=== PATIENT | female | born 1945 | race Caucasian/White ===

== ENCOUNTER 2016-09-16 10:21 | Inpatient (IN) | payer MEDICARE, BC, MEDICAID ==
[2016-09-16] VITALS (11 sets, daily range): BP systolic 130–157; BP diastolic 57–88; Ht 160 cm; Wt 104.1 kg
[~2016-09-16] VITALS: Ht 160 cm; Wt 104.1 kg
[~2016-09-16 10:21] MED LIST: ASPIRIN325 MG PO; COZAAR100 MG PO; ELIQUIS2.5 MG PO; GLUCOPHAGE500 MG PO; HYDROCHLOROTHIA25 MG PO; HYDROCODON-ACE1 EAC7 PO; MIRALAX17 GM PO; TYLENOL #4 W/CO1 TAB PO; ZOFRAN4 MG PO
[2016-09-16 11:51] LABS: BASOPHILS 0.2 % (0.0-2.0); EOSINOPHILS 2.6 % (0-7); HEMATOCRIT 32.3 % (36.0-48.0); HEMOGLOBIN 9.8 g/dL (12-16); IMMATURE GRANULOCYTES 0.2 % (0-5); LYMPHOCYTES 29.4 % (15-50); MCH 26.6 pg (26.0-34.0); MCHC 30.3 g/dL (31.0-37.0); MCV 87.5 fL (80.0-100.0); MEAN PLATELET VOLUME 9.9 fL (7.4-10.4); MONOCYTES 4.7 % (2-11); NEUTROPHILS 62.9 % (40-80); PLATELET COUNT 216 10x3/uL (130-400); RBC 3.69 10x6/uL (4.00-5.40); RDW 14.9 % (11.5-14.5); WBC 5.7 10x3/uL (4.8-10.8)
[2016-09-16 11:56] LABS: APTT 25.6 SECONDS (22.8-39.4); INR 1.11 (0.85-1.17); PROTIME 14.2 SECONDS (11.6-15.0)
[2016-09-16 11:59] LABS: CALC OSMOLALITY 286 mosm/kg (275-300); CARBON DIOXIDE 28.7 mmol/L (21.0-32.0); CHLORIDE - SERUM 106 mmol/L (98-107); CREATININE - SERUM 0.7 mg/dL (0.6-1.3); GLUCOSE 115 mg/dL (74-106); POTASSIUM - SERUM 4.9 mmol/L (3.5-5.1); SODIUM 143 mmol/L (136-145); UREA NITROGEN 16 mg/dL (7-18); eGFR NON AFRICAN AMERICAN 87 mL/min (90-120)
[2016-09-16] MEDS ORDERED: LASIX40 MG PO (12:03)
[2016-09-16] MEDS ORDERED: NEURONTIN 300300 MG PO (12:03)
[2016-09-16] MEDS ORDERED: REQUIP1 MG PO (12:04)
--- NOTE | 2016-09-16 12:26 | NUR ---
1220-PT WITH ABNORMAL EKG, DR REYNOSO NOTIFIED AND STATED THEY WOULD TAKE A LOOK AT IT WHEN THE PT GOT TO HOLDING.
--- NOTE | 2016-09-16 16:00 | NUR ---
PATIENT RECEIVED TO FLOOR FROM PACU VIA BED. RESPIRATIONS EVEN AND UNLABORED. VITAL SIGNS STABLE. DRESSING TO LEFT SHOULDER CLEAN, DRY AND INTACT. SLING AND ICE PACK IN PLACE. ORIENTED TO ROOM. SIDE RAILS UP X2. BED IN LOW POSITION. CALL LIGHT IN REACH. YELLOW FALL RISK BAND PLACED ON PATIENT. FAMILY AT BEDSIDE.
--- NOTE | 2016-09-16 18:30 | NUR ---
PATIENT IN MID QUINTERO POSITION RESTING WITH EYES CLOSED. RESPIRATIONS EVEN AND UNLABORED. VITAL SIGNS STABLE. STATES PATIENT TOOK A FEW BITES OF DINNER. SIDE RAILS UP X2. BED IN LOW POSITION. CALL LIGHT IN REACH.
--- NOTE | 2016-09-16 19:00 | NUR ---
PATIENT SLEEPING WITH NO DISTRESS NOTED. AROUSES TO VOICE. DENIES PAIN AT THIS TIME. RR EVEN AND UNLABORED. O2 @ 2L VIA NC. CONT. PULSE OX ON. 0 S/S OF DISTRESS. IV TO RIGHT HAND PATENT WITH NO REDNESS OR SWELLING. DRESSING TO LEFT SHOULDER CDI. SLING TO LUE WITH ICE. B/A ON. AT BEDSIDE. SRX2. BED LOW. CALL LIGHT WITHIN REACH.
--- NOTE | 2016-09-16 22:00 | NUR ---
PATIENT VOIDED AND SAMPLE COLLECTED. C/O NAUSEA AFTER PATIENT ATTEMPTED TO EAT A CRACKER. ZOFRAN GIVEN. NIGHTTIME MEDS GIVEN. O2 SATS 99%. TURNED O2 DOWN TO 1L. WILL CONTINUE TO MONITOR.
[2016-09-17 00:31] LABS: APPEARANCE CLEAR (CLEAR); BILIRUBIN NEGATIVE (NEGATIVE); COLOR YELLOW (YELLOW); GLUCOSE NEGATIVE (NEGATIVE); KETONE NEGATIVE (NEGATIVE); LEUKOCYTE ESTERASE NEGATIVE (NEGATIVE); NITRITE NEGATIVE (NEGATIVE); PROTEIN NEGATIVE (NEGATIVE); SPECIFIC GRAVITY 1.015 (1.005-1.020); UROBILINOGEN NORMAL (NORMAL)
--- NOTE | 2016-09-17 03:05 | NUR ---
PATIENT VOIDED IN BEDPAN AND IT LEAKED ON PAD. PAD CHANGED. PATIENT STAES THAT PAIN IS NOW AN 8/10. PERCOCET GIVEN PER ORDER. WILL REASSESS. O2 SATS 97%. TURNED OFF 02.
--- NOTE | 2016-09-17 05:12 | NUR ---
PATIENT SLEEPING WITH NO DISTRESS NOTED. O2 95%.
--- NOTE | 2016-09-17 07:35 | NUR ---
PT ASSESSMENT COMPLETE NO ACUTE DISTRESS NOTED VOICES ALL NEDS TO STAFF ALL ADLS PER STAFF ASSIST. PT AWAKE AND ALERT ORINETED X 3 IS VERY HARD OF HEARING SPOUSE AT BEDSIDE. PIV PATENT TO RIGHT HAND NOTED SLING IMOBILIZER TO LEFT SHOULDER. HAS FENTLYL ALEX IN PLACE TO LEFT SHOULDER. DRESSING TO SURGICAL SITE IN TACT.
[2016-09-17 07:38] VITALS: BP 108/39
--- NOTE | 2016-09-17 08:36 | NUR ---
PT WITH EMESIS X 1 GREEN BILE LOOKING VOMIT. ZOFRAN 4 MG IVP GIVEN PER ORDER. CM HERE AND NOTIFIED OF CHANGE IN CONDITION
--- NOTE | 2016-09-17 08:53 | NUR ---
NAUSEA RESOLVED. PT EATING BREAKFAST.DENIES NEEDS.CALL LIGHT IN REACH
--- NOTE | 2016-09-17 10:41 | NUR ---
PT WITH EMESIS AGAIN WHEN PHYSICAL THERAPY IN ROOM NO NAUSEA WHEN NOT MOVING STATES THAT SOMETIMES PAIN MEDS MAKE HER SICK IS TO STRONG.
[2016-09-17 11:18] VITALS: BP 112/43
--- NOTE | 2016-09-17 14:40 | NUR ---
Patient Name: SNEHAL ABDI Admission Status: Elective Accout number: [id number] Admission Date: 09-16-2016 : 1945 Admission Diagnosis:4-PART FRACTURE OF SURGICAL NECK OF LEFT HUMERUS, INIT Attending: LILLY Current LOS: 1 Anticipated DC Date: 09-18-2016 Planned Disposition: Home or Self Care Primary Insurance: MEDICARE A & B Discharge Planning Comments: CM MET WITH PATIENT REGARDING D/C NEEDS AND PLANS. PATIENT STATED SHE LIVES WITH HER SPOUSE (JORGE) AND HE WILL DRIVE HER HOME AT DISCHARGE. PATIENT STATED THEY HAVE 2 STEPS W/RAILS TO ENTER HOME AND NO STAIRS INSIDE. PATIENT STATED SHE IS INDEPENDENT WITH HER CARE AND HAS A WALKER (USES AT TIMES), SHOWER CHAIR, AND BS COMMODE IF NEEDED AT HOME. PATIENTS PCP IS DR. CAMACHO AND PHARMACY IS [facility] IN [place]. PATIENT REFUSED HOME HEALTH WANTS TO GO HOME. CM WILL CONTINUE TO FOLLOW PATIENT WITH D/C NEEDS AND PLANS. PCP DR. CAMACHO [facility]Y [facility] [phone] JORGE (SPOUSE) [phone] [place] Tender: Eileen Pruitt Is the patient Alert and Oriented? Yes 0 * How many steps to enter\exit or inside your home? 2 W/RAILS 0 * PCP DR. CAMACHO 0 * Pharmacy [facility] IN [place] 0 * Preadmission Environment Home with Family 0 * ADLs Independent 0 * Equipment Bedside Commode Shower Chair Walker 0 * List name and contact numbers for known caregivers / representatives who currently or will assist patient after discharge: JORGE KIM (SPOUSE) [phone] 0 * Community resources currently utilized None 0 * Additional services required to return to the preadmission environment? Yes 0 * Can the patient safely return to the preadmission environment? Yes 0 * Has this patient been hospitalized within the prior 30 days at any hospital? No 0 Grand Total: 0
[2016-09-17 15:08] VITALS: BP 113/44
--- NOTE | 2016-09-17 15:30 | NUR ---
PT UP AMBULATING WITH PHYSICAL THERAPY NO ACUTE DISTRESS NOTED VOICES ALL NEEDS TO STAFF. EMESIS NOTED WITH MOVEMENT INITIALLY.
--- NOTE | 2016-09-17 16:00 | NUR ---
DR REYNOSO HERE DECREASED FENTNYL TO 6 MCG/HR WILL REASSESS EFFECTIVENESS
--- NOTE | 2016-09-17 17:39 | NUR ---
PT COMPLAINS OF PAIN EARLIER GIVEN PERCOCET PER ORDER WILL MONITOR EFFECTIVENESS. NOTED LESS NAUSEA WITH DECREASED DOSE OF FENTANYL
--- NOTE | 2016-09-17 18:38 | NUR ---
PT VOMITING GREEN BILE ZOFRAN 4 MG IVP PER ORDER WILL MONITOR EFFECTIVENESS
[2016-09-17 19:00] VITALS: BP 99/48
--- NOTE | 2016-09-17 19:00 | NUR ---
PATIENT SLEEPING SUPINE IN BED. HOB 30 DEGREES. RR EVEN AND UNLABORED. 0 S/S OF DISTRESS. IV TO RIGHT HAND PATENT WITH NO REDNESS OR SWELLING. DRESSING TO LEFT SHOULDER CDI. SLING TO LUE. PUT SCD'S ON PATIENT. B/A ON. AT BEDSIDE. SRX2. BED LOW. CALL LIGHT WITHIN REACH.
--- NOTE | 2016-09-17 20:30 | NUR ---
ASSESSMENT COMPLETE. NIGHTTIME MEDS GIVEN. INSTRUCTED PATIENT TO USE IS AND COUGH. DENIES PAIN AT THIS TIME.
[2016-09-18] VITALS: BP 108/54
--- NOTE | 2016-09-18 03:49 | NUR ---
PATIENT SLEEPING WITH NO DISTRESS NOTED. AT BEDSIDE. CALL LIGHT WITHIN REACH.
[2016-09-18 04:00] VITALS: BP 101/47
--- NOTE | 2016-09-18 07:00 | NUR ---
REPORT RECIEVED ASSUMED CARE. PATIENT IN BED WITH IV INTACT. NO COMPLAINTS AT THIS TIME. CALL LENAW VICTORIA SPENCER.
[2016-09-18 08:21] VITALS: BP 113/98
[2016-09-18 08:48] LABS: HEMATOCRIT 26.9 % (36.0-48.0); HEMOGLOBIN 8.4 g/dL (12-16); MCH 27.2 pg (26.0-34.0); MCHC 31.2 g/dL (31.0-37.0); MCV 87.1 fL (80.0-100.0); RBC 3.09 10x6/uL (4.00-5.40); RDW 15.4 % (11.5-14.5)
[2016-09-18 09:06] LABS: ANION GAP 12.7 mmol/L (8-16); CALCIUM 8.1 mg/dL (8.5-10.1); CARBON DIOXIDE 23.7 mmol/L (21.0-32.0); CREATININE - SERUM 0.8 mg/dL (0.6-1.3); POTASSIUM - SERUM 4.4 mmol/L (3.5-5.1)
[2016-09-18] MEDS ORDERED: PERCOCET 10/3251 TA1 PO (09:22)
[2016-09-18] MEDS ORDERED: ZOFRAN4 MG PO (09:25)
[2016-09-18 11:51] VITALS: BP 124/54
--- NOTE | 2016-09-18 13:30 | NUR ---
PATIENT BLOCK REMOVED BY DR. REYNOSO. PATIENT HAS NO PAIN AT THIS TIME. FAMILY AT BEDSIDE. CALL LIGHT WITHIN REACH.
--- NOTE | 2016-09-18 15:45 | NUR ---
NOTIFIED CM THAT PATIENT O2 SATS ARE DOWN IN THE 80'S WITHOUT O2. NEW ORDERS RECIEVED AND CARRIED OUT. CALL LIGHT WITHIN REACH.
[2016-09-18 17:27] VITALS: BP 109/50
--- NOTE | 2016-09-18 18:26 | NUR ---
PATIENT IN BED WITH NO COMPLAINTS AT THIS TIME. IV REMOVED WITH CATH TIP INTACT. SLING ON LUE. FAMILY AT BEDSIDE. CALL LIGHT WITHIN REACH. O2 ON AT 2 L NC.
--- NOTE | 2016-09-18 19:00 | NUR ---
PATIENT SUPINE IN BED. HOB 30 DEGREES. AAOX4. RR EVEN AND UNLABORED. O2 @ 2L. SATS 99%. TURNED DOWN TO 1L. WILL MONITOR. 0 S/S OF DISTRESS. DENIES PAIN AT THIS TIME. IV TO RIGHT HAND S/L WITH NO REDNESS OR SWELLING. DRESSING TO LEFT SHOULDER CDI. SLING TO LUE. SCD'S IN ROOM BUT OFF. B/A ON. AT BEDSIDE. SRX2. BED LOW. CALL LIGHT WITHIN REACH.
[2016-09-18 20:00] VITALS: BP 123/45
[2016-09-19] VITALS: BP 124/52
--- NOTE | 2016-09-19 | NUR ---
PATIENT HAD INCONTINENT EPISODE OF BOWEL. ASSISTED TO BATHROOM. LINENS AND GOWN CHANGED. NOW BACK IN BED WITH NO OTHER NEEDS.
[2016-09-19 04:00] VITALS: BP 137/65
--- NOTE | 2016-09-19 07:00 | NUR ---
REPORT RECIEVED ASSUMED CARE. PATIENT IN BED WITH IV INTACT. NO COMPLAINTS. CALL LIGHT WITHIN REACH.
--- NOTE | 2016-09-19 08:45 | NUR ---
PATIENT UP AMBULATING AT THIS TIME. NO SOB OR PROBLEMS.
[2016-09-19 09:44] VITALS: BP 113/42
--- NOTE | 2016-09-19 10:32 | NUR ---
CM REASSESSMENT NOTE: PATIENT IS DISCHARGING HOME TODAY- IS DRIVING HER. PATIENT REF. HOME HEALTH OR ANY OTHER NEEDS.
--- NOTE | 2016-09-19 13:00 | NUR ---
PATIENT RECIEVED DC INSTRUCTIONS. VERBALIZED UNDERSTANDING. PRESCRIPTIONS GIVEN TO PATIENT. NO QUESTIONS AT THIS TIME. CALL LIGHT WITHIN REACH. FAMILY AT BEDSIDE.
--- NOTE | 2016-09-19 13:22 | NUR ---
ESCORTED PATIENT DOWN TO PRIVATE VEHICLE VIA AT THIS TIME. FAMILY WITH PERSONAL BELONGINGS. ASSISTED PATIENT INTO CAR WITH NO PROBLEMS.
--- NOTE | 2016-10-21 13:28 | OP ---
PATIENT NAME: SNEHAL ABDI MEDICAL RECORD: [id number] :43 LOCATION:[id number] ADMISSION DATE:09/16/16 SURGEON: JAYDE ALMANZAR MD DATE OF OPERATION: 09/16/2016 PREOPERATIVE DIAGNOSIS: A 4-part proximal humerus fracture with previously known arthritis. POSTOPERATIVE DIAGNOSES: 4-part proximal humerus fracture with previously known arthritis. PROCEDURE: Total shoulder arthroplasty with fracture stem for fracture. SURGEON: Jayde Almanzar MD ANESTHESIA: General. INTRAOPERATIVE COMPLICATIONS: None. SUMMARY OF PATHOLOGIC FINDINGS: The patient's humeral head was in varus position as well as had substantially increased retroversion. This required to go through the tuberosities, extract the humeral head. OPERATIVE SUMMARY IN DETAIL: After obtaining the appropriate preoperative orthopedic surgery consent as well as anesthetic consultation, evaluation and clearance, the patient was brought to the operating room and placed on the operating table in supine position. After general endotracheal anesthesia was administered, the patient was placed in the beach chair position. All pressure points were well padded to include down leg peroneal nerve pad as well as axillary roll. All pressure points were well padded. The patient was held firmly to the operating table using the vacuum pack suction system. The patient's left upper extremity and shoulder were prepped and draped in a routine sterile fashion. The arm was held in the Trimano arm holding device from [employer]. Routine incision was created, taken down to the level of the cephalic vein, which was identified and protected during the entire case and this was then taken down to the clavipectoral fascia, which was incised. The deltoid was retracted using the deltoid retractor and the conjoined tendon was gently retracted medially. At this point, the fracture to the tuberosities was , control of the tuberosities was achieved using #2 Ethibond. These were posteriorly and anteriorly and then the humeral head was extracted and used for the humeral head measurements. The entire cavity was copiously irrigated and cleaned. Following this, the glenoid which was profoundly arthritic was approached. Circumferential labrectomy was followed by placement of the center guide pin. This was followed by reaming and then preparation for the glenoid. The glenoid was cemented into place. Excess cement was removed. It was held in place until cement was allowed to harden. At this point, serial and sequential reaming and broaching were done for the Tornier fracture stem. The appropriate stem was then put into place, cemented and held in place at approximately 40 degrees of retroversion while the cement was allowed to harden. Having completed this, further bone graft was placed around the base of the stem. The tuberosities were then brought together and they were reapproximated using FiberWire around the base of the stem transosseously and then through drill holes to the cortical shaft. Having completed this, the wound was copiously irrigated and closed using #1 Vicryl followed by 2-0 Vicryl and skin justine. Sterile dressings were applied. The OPERATIVE REPORT [id number] SNEHAL ABDI patient was awakened, taken to recovery room in stable condition. All final needle and sponge counts were correct. TRANSINT:[id number] Voice Confirmation ID: [id number] DOCUMENT ID: [id number] YOHAN FERRELL, JAYDE PANIAGUA at 1328 CC: [id number] DICTATION DATE: 10/18/162020 [employer] ENGINEER: 10/19/16 0302 DIS IN 09/19/16 [facility] [address] [place] [address]
== END 2016-09-19 13:27 | disposition home health service (06) | DRG 483 ==
LOC: D.MS 10:21 → D.SDCHOLD 10:21 → D.MS 15:12
PROVIDERS: ADMIT Orthopaedic Surgery
PROC: 05HB33Z Insertion of Infusion Device into Right Basilic Vein, Percutaneous Approach (ICD-10-PCS; 2016-09-16)
PROC: B54MZZA Ultrasonography of Right Upper Extremity Veins, Guidance (ICD-10-PCS; 2016-09-16)
PROC: 0RRK0JZ Replacement of Left Shoulder Joint with Synthetic Substitute, Open Approach (ICD-10-PCS; principal; 2016-09-16 12:55)
DX: S42.242A 4-part fracture of surgical neck of left humerus, initial encounter for closed fracture (principal); Z68.41 Body mass index [BMI] 40.0-44.9, adult; W19.XXXA Unspecified fall, initial encounter; E66.01 Morbid (severe) obesity due to excess calories; H91.93 Unspecified hearing loss, bilateral

== ENCOUNTER → 2016-12-30 06:48 | Outpatient (CLI) | payer MEDICARE, BC, MEDICAID ==
[2016-09-16 16:47] VITALS: BMI 40.6
[~2016-12-30 06:48] MED LIST changes: +LASIX40 MG PO; +NEURONTIN 300300 MG PO; +PERCOCET 10/3251 TA1 PO; +REQUIP1 MG PO
== END | disposition home or self-care (01) ==
LOC: D.RAD 06:48
DX: S42.202A Unspecified fracture of upper end of left humerus, initial encounter for closed fracture (principal)

== ENCOUNTER → 2017-01-05 12:05 | Outpatient (CLI) | payer MEDICARE, BC, MEDICAID ==
[2016-09-16 16:47] VITALS: BMI 40.6
== END | disposition home or self-care (01) ==
LOC: D.RAD 12:05
DX: S42.202K Unspecified fracture of upper end of left humerus, subsequent encounter for fracture with nonunion (principal); X58.XXXA Exposure to other specified factors, initial encounter; Y93.89 Activity, other specified; Y92.89 Other specified places as the place of occurrence of the external cause

== ENCOUNTER 2018-09-18 14:47 | Emergency (ER) | payer MEDICARE, BC ==
[~2018-09-18] VITALS: Ht 160 cm; Wt 113.6 kg
[2018-09-18 14:52] VITALS: Ht 160 cm; Wt 113.6 kg
[2018-09-18 16:29] VITALS: BP 178/89
== END 2018-09-18 16:29 | disposition home or self-care (01) ==
LOC: D.ER 14:47
DX: K22.2 Esophageal obstruction (principal)

== ENCOUNTER 2018-11-27 07:02 | Day surgery (SDC) | payer MEDICARE, BC | END 2018-11-27 10:39 | disposition home or self-care (01) | LOC: D.OPS 07:02 | DX: R13.10 Dysphagia, unspecified (principal); K21.0 Gastro-esophageal reflux disease with esophagitis; K44.9 Diaphragmatic hernia without obstruction or gangrene ==

== ENCOUNTER → 2018-12-21 10:30 | Outpatient (CLI) | payer MEDICARE, BC ==
[2018-11-27 08:51] VITALS: BMI 44.3
[~2018-12-21 10:30] MED LIST changes: +K-TAB10 MEQ PO; +NYAMYC60 GM TP; +ULTRAM50 MG PO; +VITAMIN D250000 UNIT; +VITAMIN D31000 UNIT PO
== END | disposition home or self-care (01) ==
LOC: D.MAMMO 10:30
PROVIDERS: ATTEND Clinical Nurse Specialist Adult Health
DX: Z12.31 Encounter for screening mammogram for malignant neoplasm of breast (principal)

== ENCOUNTER 2019-04-23 11:23 | Emergency (ER) | payer MEDICARE, BC ==
[~2019-04-23] VITALS: Ht 160 cm; Wt 113.6 kg
[2019-04-23 12:08] VITALS: Ht 160 cm; Wt 113.6 kg
[2019-04-23 12:50] LABS: BASOPHILS 0.3 % (0-2); EOSINOPHILS 1.5 % (0-7); HEMATOCRIT 40.5 % (36.0-48.0); HEMOGLOBIN 12.8 g/dL (12-16); IMMATURE GRANULOCYTES 0.2 % (0-5); LYMPHOCYTES 28.4 % (15-50); MCH 28.3 pg (26.0-34.0); MCHC 31.6 g/dL (31.0-37.0); MCV 89.4 fL (80.0-100.0); MEAN PLATELET VOLUME 9.7 fL (7.4-10.4); MONOCYTES 6.2 % (2-11); NEUTROPHILS 63.4 % (40-80); PLATELET COUNT 208 10x3/uL (130-400); RBC 4.53 10x6/uL (4.00-5.40)
[2019-04-23 12:58] LABS: CALC OSMOLALITY 277 mosm/kg (275-300); CALCIUM 8.5 mg/dL (8.5-10.1); CARBON DIOXIDE 27.7 mmol/L (21.0-32.0); CHLORIDE - SERUM 103 mmol/L (98-107); CREATININE - SERUM 0.7 mg/dL (0.6-1.3); GLUCOSE 110 mg/dL (74-106); POTASSIUM - SERUM 3.9 mmol/L (3.5-5.1); SODIUM 139 mmol/L (136-145); UREA NITROGEN 10 mg/dL (7-18); eGFR NON AFRICAN AMERICAN 87 mL/min (90-120)
[2019-04-23 12:59] LABS: APTT 28.1 SECONDS (22.8-39.4)
[2019-04-23 13:00] LABS: D-DIMER-QUANTITATIVE 0.83 ug/mLFEU (0.20-0.54); INR 1.23 (0.85-1.17); PROTIME 14.9 SECONDS (11.6-15.0)
[2019-04-23 13:13] LABS: ALBUMIN 3.6 g/dL (3.4-5.0); ALKALINE PHOSPHATASE 90 U/L (46-116); ALT (SGPT) 36 U/L (10-68); CKMB 0.9 U/L (0.0-3.6); CREATINE KINASE 73 UL (21-215); PRO BNP 376 pg/mL (0-125); TROPONIN-I < 0.017 ng/mL (0.000-0.060)
[2019-04-23 17:14] VITALS: BP 181/63
== END 2019-04-23 17:04 | disposition home or self-care (01) ==
LOC: D.ER 11:23
PROVIDERS: Family Medicine
DX: R06.02 Shortness of breath (principal); I10 Essential (primary) hypertension; E11.9 Type 2 diabetes mellitus without complications; K21.9 Gastro-esophageal reflux disease without esophagitis

== ENCOUNTER → 2019-06-28 10:24 | Outpatient (CLI) | payer MEDICARE, BC ==
[2019-04-23 12:08] VITALS: BMI 44.3
--- NOTE | 2019-07-02 11:13 | EC ---
PATIENT:SNEHAL ABDI DATE OF SERVICE: 06/28/19 SEX: F MEDICAL RECORD: [id number] DATE OF : 43 [facility] AGE OF PATIENT: 73 ADMISSION DATE: 06/28/19 REFERRING PHYSICIAN: INTERPRETING PHYSICIAN: SY RAMIREZ MD ECHOCARDIOGRAM REPORT ECHO CHARGES 4 ECHO COMPLETE Date: 06/28/19 CLINICAL DIAGNOSIS: EDEMA ECHOCARDIOGRAPHIC MEASUREMENTS (adult normal given) AC root (d.<3.7cm) 2.8 cm LV Septum d (<1.2 cm> 1.5 cm Valve Excursion 1.8 cm LV Septum (systole) 2.0 cm Left Atria (s.<4.0cm> 4.3 cm LVPW d(<1.2cm) 1.2 cm RV (d.<2.3cm) 2.7 cm LVPW (sytole) 1.9 cm LV diastole(<5.6CM) 6.3 cm MV E-F(>70mm/sec) cm LV systole 3.5 cm LVOT Diameter 1.9 cm MV exc.(>10mm) cm Est.ejection fraction (50-75%) % DOPPLER: LVIT cm/sec A 52.0 cm/sec E 112 cm/sec LA cm/sec RVSP 44.2 mmHg LVOT 104 cm/sec AOP1/2T m/s Asc. Ao 154 cm/sec RVOT 100 cm/sec RA cm/sec PA 124 cm/sec AV Gradient Peak 9.5 mmHg AV Mean 4.1 mmHg AV Area 2.0 cm MV Gradient Peak 7.8 mmHg MV Mean 2.2 mmHg MV Area cm COMMENTS: Talent Sourcer: 1 AILIN MATAMORAS Manufacturing Controller: 1 Dr. Ramirez TAPE# PACS Pericardial Effusion N DATE OF SERVICE: ECHOCARDIOGRAM FINDINGS: 1. Left ventricular chamber size is mildly dilated. Left ventricular systolic function is preserved at 55% to 60%. 2. Left atrium is enlarged at 4.3 cm. Right atrium and right ventricular chamber sizes are within normal limits. 3. Valvular structures have normal structure and motion. ECHOCARDIOGRAM REPORT [id number] SNEHAL ABDI 4. Doppler interrogation reveals mild mitral regurgitation, no other valvular insufficiency or stenosis. Pulmonary systolic pressure is mildly elevated, estimated at 44 mmHg. 5. No evidence of pericardial effusion or left ventricular thrombus. TRANSINT:[id number] Voice Confirmation ID: [id number] DOCUMENT ID: [id number] SY RAMIREZ MD at 1113 CC: [id number] DICTATION DATE: 06/29/19 1210 ETYMOLOGY TEACHER: 06/29/19 1528 [facility] CLI 06/28/19 [place] [id number] [place] [id number]
== END | disposition home or self-care (01) ==
LOC: D.ECHO 10:24
PROVIDERS: ATTEND Family Medicine
DX: R60.9 Edema, unspecified (principal)